=== PATIENT | male | born 1940 | race Caucasian/White ===

== ENCOUNTER 2025-06-15 06:19 | Day surgery (SDC) | payer MEDICARE, OTHER, SELFPAY ==
[2025-06-15 07:18] LABS: Glucose - Point of Care 70 mg/dl (70-99)
== END 2025-06-15 09:11 | disposition home or self-care (01) ==
LOC: GI 06:19
PROVIDERS: ATTENDING PHYSICIAN Internal Medicine
DX: K62.5 Hemorrhage of anus and rectum (principal); K64.9 Unspecified hemorrhoids; K63.89 Other specified diseases of intestine; K62.89 Other specified diseases of anus and rectum; D49.0 Neoplasm of unspecified behavior of digestive system; D12.0 Benign neoplasm of cecum; D12.2 Benign neoplasm of ascending colon; D12.3 Benign neoplasm of transverse colon; D12.8 Benign neoplasm of rectum; K63.5 Polyp of colon; K51.40 Inflammatory polyps of colon without complications
CPT/HCPCS: 45385; 45381; 45380; 82962; 88305

== ENCOUNTER 2025-07-09 06:08 | Day surgery (SDC) | payer MEDICARE, OTHER, SELFPAY ==
--- NOTE | 2025-07-07 13:45 | PTCARENOTE ---
Patients last dose of Empagliflozin 07/07- Dr. Ramirez notified- no additional interventions required
[2025-07-09] VITALS (12 sets, daily range): BP systolic 97–141; BP diastolic 43–74; BMI 23.7
[2025-07-09] MEDS: TYLENOL 1000 MG PO (06:58)
[2025-07-09 07:00] LABS: Glucose - Point of Care 158 mg/dl (70-99)
[2025-07-09] MEDS: NORMOSOL-R/PLASMALYTE-A 1000 IV (07:07)
[2025-07-09 08:43] LABS: Glucose - Point of Care 154 mg/dl (70-99)
== END 2025-07-09 10:15 | disposition home or self-care (01) ==
LOC: SDS 06:08
PROVIDERS: ATTENDING PHYSICIAN Surgery; FAMILY PHYSICIAN Internal Medicine
DX: C20 Malignant neoplasm of rectum (principal)
CPT/HCPCS: 45171; 82962; 88307; 88342